=== PATIENT | female | born 1955 | race Caucasian/White ===

== ENCOUNTER 2018-02-11 18:37 | Emergency (ER) | payer OTHER ==
[2018-02-11 19:14] VITALS: BP 128/66
--- NOTE | 2018-02-11 19:51 | UC ---
UC General HPI - HPI Summary HPI Summary: sore throat since yesterday plus bodyaches as well today. no fever. - History of Current Complaint Chief Complaint: UCGeneralIllness Stated Complaint: SORE THROAT Time Seen by Provider: 02/11/18 19:46 Hx Obtained From: Patient Hx Last Menstrual Period: age 33yrs Onset/Duration: Gradual Onset Timing: Constant Pain Intensity: 5 Aggravating: nothing Alleviating: nothing Associated Signs & Symptoms: Negative: Fever, Headache - Allergy/Home Medications Allergies/Adverse Reactions: Allergies Allergy/AdvReac Type Severity Reaction Status Date / Time seasonal Allergy Eyes Uncoded 09/23/15 14:39 Itchy/Swollen/Red/Watery Home Medications: Home Medications Ibuprofen [Advil] 400 mg PO Q8H 02/11/18 [History Confirmed 02/11/18] Insulin Glargine,Hum.rec.anlog [Basaglar Kwikpen U-100] 75 units SQ DAILY [History Confirmed 02/11/18] hydroCHLOROthiazide [Hydrochlorothiazide] 10 mg PO BID 02/11/18 [History Confirmed 02/11/18] PMH/Surg Hx/FS Hx/Imm Hx Endocrine History: Diabetes, Thyroid Disease, Dyslipidemia - Surgical History Surgical History: Yes Surgery Procedure, Year, and Place: tubal ligation - Social History Occupation: Retired Lives: With Family Alcohol Use: None Substance Use Type: None Smoking Status (MU): Never Smoked Tobacco Household Exposure Type: Cigarettes Review of Systems Constitutional: Negative Skin: Negative Eyes: Negative ENT: Sore Throat Respiratory: Negative Cardiovascular: Negative Gastrointestinal: Negative Genitourinary: Negative Motor: Negative Neurovascular: Negative Musculoskeletal: Myalgia Neurological: Negative Psychological: Negative Is Patient Immunocompromised?: No All Other Systems Reviewed And Are Negative: Yes Physical Exam Triage Information Reviewed: Yes Appearance: Well-Appearing Vital Signs: Initial Vital Signs Temp 98.7 F 02/11/18 19:01 Pulse 52 02/11/18 19:01 Resp 18 02/11/18 19:01 BP 128/66 02/11/18 19:01 Pulse Ox 100 02/11/18 19:01 Vital Signs Reviewed: Yes Eyes: Positive: Conjunctiva Clear ENT: Positive: Pharyngeal erythema - with mild to moderate swelling, TMs normal , Uvula midline. Negative: Nasal congestion, Nasal drainage, Trismus, Muffled voice, Hoarse voice Neck: Positive: Supple, Nontender, Enlarged Nodes @ - peritonsilar Respiratory: Positive: Lungs clear, Normal breath sounds Cardiovascular: Positive: RRR, No Murmur Abdomen Description: Positive: Nontender, No Organomegaly, Soft Bowel Sounds: Positive: Present Musculoskeletal: Positive: ROM Intact Neurological: Positive: Alert Psychological: Positive: Age Appropriate Behavior Skin Exam: Normal Diagnostics - Laboratory Diagnostic Studies Completed/Ordered: rapid strep=neg Course/Dx - Course Course Of Treatment: rapid strep-neg. pt non toxic; however, deep pharyngeal erythema with some swelling and peritonsialr adenopathy and no uri or cough thus will cover for presumtive bacterial infection. - Differential Dx - Multi-Symptom Provider Diagnoses: Pharyngitis Discharge - Sign-Out/Discharge Documenting (check all that apply): Discharge - Discharge Plan Condition: Stable Disposition: HOME Prescriptions: Amoxicillin PO (*) [Amoxicillin 875 MG (*)] 875 mg PO BID #20 tab Patient Education Materials: Pharyngitis (ED) Referrals: Jenn Dumont MD [Primary Care Provider] - 7 Days - Billing Disposition and Condition Condition: STABLE Disposition: HOME
[2018-02-11] MEDS ORDERED: Amoxicillin/Clavulanate TAB* 875 MG PO ONE (19:54)
== END 2018-02-11 20:01 | disposition home or self-care (01) ==
LOC: UCCORT 18:37
DX: J02.9 Acute pharyngitis, unspecified (principal)
CPT/HCPCS: 87651; 99212; A9270-GY; G0463